=== PATIENT | female | born 1955 | race Caucasian/White ===

== ENCOUNTER 2021-07-13 13:36 | Emergency (ER) | payer SELFPAY ==
--- NOTE | ~2021-07-13 | XR_ITS ---
EXAMINATION: XR hand RT min 3V EXAM DATE: 07/13/2021 14:29 INDICATION: rt hand pain s/p fall today . TECHNIQUE: Right hand frontal, lateral and oblique projections obtained and reviewed. There is no pr ior study for comparison. FINDINGS: Right metacarpal bones are unremarkable. There is mild polyarticular primary osteoarthriti s. There are no bony erosions identified. There are no acute fractures or dislocations identified. T here is no subcutaneous gas. The soft tissue is unremarkable. There are no radiopaque foreign bodi es. IMPRESSION: 1. XR hand RT min 3V exam without acute osseous findings. Reviewed, dictated and finalized at location A. PTIONIST/TELEPHONE OPERATOR
--- NOTE | ~2021-07-13 | XR_ITS ---
EXAMINATION: [id number] EXAM DATE: 07/13/2021 14:29 INDICATION: Initial encounter following injury, with pain of the right ribs. TECHNIQUE: Frontal projection of the upper right ribs, frontal projection of the lower right ribs, ob lique projection of the right ribs, frontal chest x-ray(s) for interpretation. There is no prior memo dy for comparison. FINDINGS: Right 5th rib fracture which appears nondisplaced, and could be acute. Possible acute nondi splaced right 6th rib fracture laterally. There is no soft tissue abnormality seen. No confluent cons olidation, pneumothorax or pleural effusion suspected. Cardiomediastinal silhouette is normal. There are cholecystectomy clips. There is mild right glenohumeral joint, moderate acromioclavicular joint primary osteoarthritis. IMPRESSION: Probable acute right 5th rib fracture, possibly 6th rib fracture. Reviewed, dictated and finalized at location A.
[2021-07-13 13:51] VITALS: BP 151/109; PULSE 119; RESP 16; TEMP 36.8; O2SAT 96
--- NOTE | 2021-07-13 14:47 | ED.FALL ---
HPI - Fall General Chief Complaint: Fall Stated Complaint: right side pain Time Seen by Provider: 07/13/21 14:18 Source: patient and RN notes reviewed Mode of arrival: ambulatory Limitations: no limitations History of Present Illness HPI Narrative: Patient presents today complaining of right rib pain and right third and fourth finger pain after a fall this morning. She was feeding some dogs and fell into some bricks injuring herself. She currently rates her rib pain 10/10 and has not taken any medication for symptoms prior to arrival. Denies shortness of breath. She is currently taking prednisone and a Z-Kaleb for sinus infection and pharyngitis. complaint: fall Related Data Allergies Allergy/AdvReac Type Severity Reaction Status Date / Time No Known Allergies Allergy Verified 07/13/21 14:01 Review of Systems Review of Systems: CONSTITUTIONAL: Denies body aches, fever, chills, or sweats. EYES: Denies visual changes, redness, or discharge. ENT: Denies rhinorrhea, congestion, sore throat, or otalgia. CARDIOVASCULAR: Denies chest pain, palpitations, or edema. RESPIRATORY: Denies cough or dyspnea. GASTROINTESTINAL: Denies abdominal pain, nausea, vomiting, or diarrhea. GENITOURINARY: Denies dysuria or hematuria. SKIN: Denies rash, itching, or wounds. MUSCULOSKELETAL: Denies back pain, or myalgia.+ Right rib pain, right finger pain NEUROLOGIC: Denies headache, numbness, tingling, or weakness. PSYCH: Denies depression or anxiety. [facility] Past Medical History Medical History (Updated 07/13/21 @ 14:52 by Sarah Wilkes, [facility], ) COPD (chronic obstructive pulmonary disease) Comments At time of signature, I have reviewed and agree with nursing past medical, surgical, social and family history unless otherwise noted. Please see nursing chart for further information. There is no relevant family history pertinent to the presenting complaint Exam Narrative: GENERAL: Well-appearing, well-nourished, and in no acute distress. HEAD: Normocephalic, atraumatic. EYES: EOMI. No redness or drainage. Conjunctivae normal. ENT: Mucous membranes pink and moist. NECK: Normal AROM. CHEST: No respiratory distress. Clear to auscultation. Tenderness to the right lateral ribs. No edema, ecchymosis, or crepitus noted. HEART: Regular rate and rhythm. No murmur appreciated. Normal peripheral pulses. ABDOMEN: Soft, nontender, nondistended, normal active bowel sounds. EXTREMITIES: Tenderness to the right third and fourth fingers. No edema or ecchymosis noted. Range of motion elicits pain. Distal sensation intact. Capillary refill normal. Full AROM. SKIN: Warm, dry, no rash. Capillary refill normal. Normal skin turgor. NEURO: No focal deficits. Alert and oriented x3. Gait steady. PSYCH: Normal affect. No signs of depression or anxiety. Course Course Level of Care: Express Care Visit Vital Signs Vital signs: Vital Signs Temperature 98.3 F 07/13/21 13:51 Pulse Rate 119 H 07/13/21 13:51 Respiratory Rate 16 07/13/21 13:51 Blood Pressure 151/109 H 07/13/21 13:51 Pulse Oximetry 96 07/13/21 13:51 Temperature 98.3 F 07/13/21 13:51 Pulse Rate 119 H 07/13/21 13:51 Respiratory Rate 16 07/13/21 13:51 Blood Pressure 151/109 H 07/13/21 13:51 Pulse Oximetry 96 07/13/21 13:51 Reviewed. Pt has been instructed to follow up with her PCP regarding her elevated blood pressure today. MDM - Fall Differential Diagnosis Differential diagnosis: Likely other (Rib fracture, rib contusion, finger fracture, hand contusion, finger sprain) Imaging Data Radiologist's impression: ITS Impressions Hand X-Ray 07/13/21 14:32 IMPRESSION: 1. XR hand RT min 3V exam without acute osseous findings. Ribs w/Chest X-Ray 07/13/21 14:33 IMPRESSION: Probable acute right 5th rib fracture, possibly 6th rib fracture. Critical Care Time Critical Care Time Critical Care Time: No Discharge Plan Discharge Cl
== END 2021-07-13 14:55 | disposition home or self-care (01) ==
PROVIDERS: Emergency Provider Nurse Practitioner
DX: S22.41XA Multiple fractures of ribs, right side, initial encounter for closed fracture (principal); W19.XXXA Unspecified fall, initial encounter; S60.00XA Contusion of unspecified finger without damage to nail, initial encounter; J44.9 Chronic obstructive pulmonary disease, unspecified
CPT/HCPCS: 71101; 73130; 99214; G0463